=== PATIENT | female | born 1965 | race Caucasian/White ===

== ENCOUNTER → 2019-04-25 | Outpatient (CLI) | payer OTHER | LOC: M.RAD 16:17 | DX: R05 Cough (principal); K21.9 Gastro-esophageal reflux disease without esophagitis; Z88.8 Allergy status to other drugs, medicaments and biological substances; Z79.899 Other long term (current) drug therapy ==

== ENCOUNTER → 2021-05-14 | Outpatient (CLI) | payer OTHER | LOC: M.RAD 09:26 | PROVIDERS: ATTEND Registered Nurse Diabetes Educator | DX: R05.9 Cough, unspecified (principal) ==